=== PATIENT | female | born 1970 | race African-American/Black ===

== ENCOUNTER 2017-09-09 14:34 | Emergency (ER) | payer OTHER ==
[2017-09-09] MEDS: DIPHENHYDRAMINE 50 MG INJ IV (17:00)
[2017-09-09] MEDS: SOD CHLORIDE 0.9% 1,000 ML IV (17:00)
[2017-09-09] MEDS: METOCLOPRAMIDE 10 MG INJ IV (17:00)
[2017-09-09 17:16] LABS: ADD MAN DIFF? NO
[2017-09-09 17:25] LABS: WHITE BLOOD COUNT 5.8 10^3/ul (4.8-10.8)
[2017-09-09 17:25] LABS: BASOPHILS % 0.2 % (0.0-2.0); HEMATOCRIT 36.5 % (37.0-47.0); HEMOGLOBIN 12.4 g/dl (12.0-16.0); LYMPHOCYTES # 2.5 10^3/ul (0.8-2.9); LYMPHOCYTES % 43.7 % (15.0-51.0); MEAN CORPUSCULAR VOLUME 79.3 fl (82.0-101.0); MEAN PLATELET VOLUME 11.9 fl (7.4-10.4); MONOCYTE # 0.4 10^3/ul (0.3-0.9); MONOCYTES % 7.3 % (0.0-11.0); NEUTROPHIL # 2.8 10^3/ul (1.6-7.5); NEUTROPHILS % 48.6 % (39.0-77.0); PLATELET COUNT 206 10^3/UL (140-415); RED CELL DISTRIBUTION WIDTH 14.2 % (11.5-14.5)
[2017-09-09 17:42] LABS: ANION GAP 13 (8-16); BLOOD UREA NITROGEN 14 mg/dl (7-20); CALCIUM 8.9 mg/dl (8.4-10.2); CARBON DIOXIDE 30 mmol/L (21-31); CHLORIDE 104 mmol/L (97-110); CREATININE 0.65 mg/dl (0.44-1.00); GLUCOSE 97 mg/dl (70-220); POTASSIUM 3.5 mmol/L (3.5-5.1); SODIUM 143 mmol/L (135-144)
[2017-09-09] MEDS ORDERED: ONDANSETRON 4 MG INJ (17:44)
[2017-09-09 17:47] LABS: VALPROATE 59 ug/ml (50-100)
[2017-09-09] MEDS: ONDANSETRON 4 MG INJ IV (17:47)
[2017-09-09] MEDS: HYDROmorphONE 0.5 MG/0.5 ML SYG IV (17:47)
[2017-09-09] MEDS: MAGNESIUM SULFATE 1 GM/D5W 100 ML IVPB (18:57)
[2017-09-09] MEDS: DEXAMETHASONE 10 MG/ML 1 ML INJ IV (20:24)
== END 2017-09-09 20:55 | disposition home or self-care (01) ==
LOC: E/R 14:34
DX: R51 Headache (principal); R40.2142 Coma scale, eyes open, spontaneous, at arrival to emergency department; R40.2252 Coma scale, best verbal response, oriented, at arrival to emergency department; R40.2362 Coma scale, best motor response, obeys commands, at arrival to emergency department
CPT/HCPCS: 36415; 70450; 80048; 80164; 85025; 96374; 96375; 99285-25